=== PATIENT | female | born 2000 | race Caucasian/White ===

== ENCOUNTER 2020-06-12 00:32 | Emergency (ER) | payer BC ==
[~2020-06-12] VITALS: Ht 172.7 cm; Wt 56.8 kg
[2020-06-12 00:35] VITALS: TEMP 98.4
[2020-06-12 01:04] LABS: HEMOGLOBIN 11.6 g/dl (12.0-15.0); MEAN CELL VOLUME 80 fl (80.0-95.0); MEAN CORPUSCULAR HEMOGLOBIN 26 pg (26.0-32.0); MEAN CORPUSCULAR HGB CONC 32 g/dl (33.0-37.0); MEAN PLATELET VOLUME 9.8 fl (7.4-10.4); PLATELET COUNT 328 K/mm3 (130-400); RED BLOOD COUNT 4.54 M/mm3 (4.10-5.30); REDCELL DISTRIBUTION WIDTH-CV 14.9 % (11.5-14.5)
[2020-06-12 01:06] LABS: HEMATOCRIT 36.3 % (35.0-45.0)
[2020-06-12 01:17] LABS: ALANINE AMINOTRANSFERASE 7 U/L (4-34); ALBUMIN 5.4 gm/dL (3.5-5.0); ALKALINE PHOSPHATASE 69 U/L (50-136); ANION GAP 11 mmol/L (7-16); AST,SGOT 25 U/L (15-37); BILIRUBIN,TOTAL 0.4 mg/dL (0.0-1.0); BLOOD UREA NITROGEN 11 mg/dL (7-17); C-REACTIVE PROTEIN < 0.5 mg/dL (0.0-0.9); CALCIUM 9.6 mg/dL (8.4-10.2); CARBON DIOXIDE 26 mmol/L (22-30); CHLORIDE 101 mmol/L (98-107); CREATINE KINASE 53 U/L (30-135); CREATININE, serum 0.68 (0.52-1.25); GLUCOSE 104 mg/dL (74-106); POTASSIUM 3.7 mmol/L (3.4-5.0); SODIUM 138 mmol/L (137-145); TOTAL PROTEIN 8.2 gm/dL (6.4-8.2)
[2020-06-12 01:27] LABS: TROPONIN-I < 0.012 ng/mL (0.000-0.035)
[2020-06-12 01:46] LABS: EOSINOPHIL 3 % (0-4); LYMPHOCYTE 43 % (20.0-51.0); NEUTROPHILS 48 % (42.0-75.2)
[2020-06-12 01:47] LABS: OVALOCYTES 1+; PLATELET ESTIMATE NORMAL (NORMAL)
[2020-06-12] MEDS ORDERED: LOPRESSOR 225 MG/TAB PO (02:13)
[2020-06-12 02:53] VITALS: BP 128/97; PULSE 86
[2020-06-12 13:07] LABS: PATHOLOGY DIFF REVIEW OK
== END 2020-06-12 02:53 | disposition home or self-care (01) ==
LOC: COL.ER 00:32
PROVIDERS: Emergency Medicine
DX: R07.89 Other chest pain (principal); I10 Essential (primary) hypertension; F41.9 Anxiety disorder, unspecified